=== PATIENT | female | born 1980 | race Caucasian/White ===

== ENCOUNTER 2017-07-25 03:05 | Emergency (ER) | payer MEDICARE ==
[2017-07-25] MEDS ORDERED: DEXAMETHASONE SOD PHOSPHATE 10MG/ML 1ML VIAL ONE (03:32)
[2017-07-25] MEDS ORDERED: IPRATROPIUM/ALBUTEROL SULFATE 3 ML SOLUTION IH ONE (03:37)
== END 2017-07-25 04:08 | disposition home or self-care (01) ==
LOC: EDH 03:05
DX: J20.9 Acute bronchitis, unspecified (principal); Z88.1 Allergy status to other antibiotic agents; Z72.0 Tobacco use
CPT/HCPCS: 94640; 96372; 99283; J1100

== ENCOUNTER 2020-04-06 09:38 | Emergency (ER) | payer MEDICARE ==
[2020-04-06] MEDS ORDERED: IBUPROFEN 600 MG TABLET ONE (10:52)
== END 2020-04-06 13:05 | disposition home or self-care (01) ==
LOC: EDH 09:38
DX: S96.212A Strain of intrinsic muscle and tendon at ankle and foot level, left foot, initial encounter (principal); F31.9 Bipolar disorder, unspecified; E78.00 Pure hypercholesterolemia, unspecified; I10 Essential (primary) hypertension; Z90.49 Acquired absence of other specified parts of digestive tract; Z72.0 Tobacco use; Z88.1 Allergy status to other antibiotic agents; X58.XXXA Exposure to other specified factors, initial encounter; Y93.89 Activity, other specified; Y92.89 Other specified places as the place of occurrence of the external cause; Y99.8 Other external cause status
CPT/HCPCS: 73630

== ENCOUNTER → 2020-06-25 | Outpatient (CLI) | payer MEDICARE | END | disposition home or self-care (01) | LOC: DTH 13:18 | PROVIDERS: ATTEND Surgery | DX: E66.01 Morbid (severe) obesity due to excess calories (principal); I10 Essential (primary) hypertension; M19.91 Primary osteoarthritis, unspecified site; K21.9 Gastro-esophageal reflux disease without esophagitis; E78.5 Hyperlipidemia, unspecified; E11.9 Type 2 diabetes mellitus without complications; E78.00 Pure hypercholesterolemia, unspecified | CPT/HCPCS: 97802 ==

== ENCOUNTER → 2020-07-24 | Outpatient (CLI) | payer OTHER | END | disposition home or self-care (01) | LOC: DTH 11:01 | PROVIDERS: ATTEND Surgery | DX: E66.01 Morbid (severe) obesity due to excess calories (principal); I10 Essential (primary) hypertension; M19.91 Primary osteoarthritis, unspecified site; K21.9 Gastro-esophageal reflux disease without esophagitis; E11.9 Type 2 diabetes mellitus without complications; E78.00 Pure hypercholesterolemia, unspecified | CPT/HCPCS: 97803 ==

== ENCOUNTER → 2020-08-19 | Outpatient (CLI) | payer OTHER | END | disposition home or self-care (01) | LOC: DTH 10:45 | PROVIDERS: ATTEND Surgery | DX: E66.01 Morbid (severe) obesity due to excess calories (principal); I10 Essential (primary) hypertension; M19.91 Primary osteoarthritis, unspecified site; K21.9 Gastro-esophageal reflux disease without esophagitis; E11.9 Type 2 diabetes mellitus without complications; E78.00 Pure hypercholesterolemia, unspecified | CPT/HCPCS: 97803 ==

== ENCOUNTER 2020-08-25 06:57 | Day surgery (SDC) | payer MEDICARE ==
[~2020-08-25] VITALS: Ht 170.2 cm; Wt 153.3 kg
[2020-08-25] VITALS (8 sets, daily range): BP systolic 103–140; BP diastolic 66–94
[2020-08-25] MEDS ORDERED: 0.9%NACL 1000ML 1,000 ML IV ONE ×2 (07:17→07:25)
[2020-08-25] MEDS ORDERED: OXCA300T28 PO (07:58)
[2020-08-25] MEDS ORDERED: METF-444 PO (07:58)
[2020-08-25] MEDS ORDERED: QUET50TA22 PO (07:58)
[2020-08-25] MEDS ORDERED: LISI20TA24 PO (07:58)
[2020-08-25] MEDS ORDERED: ICOS1CAP PO (07:58)
[2020-08-25] MEDS ORDERED: PROPOFOL 10 MG/ML 20ML VIAL IV ONE (08:38)
== END 2020-08-25 09:40 | disposition home or self-care (01) ==
LOC: DAH 06:57
PROVIDERS: ATTEND Surgery
DX: K21.9 Gastro-esophageal reflux disease without esophagitis (principal); K31.84 Gastroparesis; Z20.822 Contact with and (suspected) exposure to COVID-19
CPT/HCPCS: 36415; 43235; 82948; 84703; 87635; 93005; A4215 ×2; A4221; A4222; A4223; A4606; A4620; A4663; C9803; J2704; J7030 ×2

== ENCOUNTER → 2020-09-25 | Outpatient (CLI) | payer MEDICARE ==
[~2020-09-25] MED LIST: ICOS1CAP PO; LISI20TA24 PO; METF-444 PO; OXCA300T28 PO; QUET50TA24 PO
== END | disposition home or self-care (01) ==
LOC: RAH 12:29
PROVIDERS: ATTEND Family Medicine
DX: Z01.818 Encounter for other preprocedural examination (principal)
CPT/HCPCS: 71046

== ENCOUNTER 2020-10-14 09:00 | Inpatient (IN) | payer MEDICARE ==
[~2020-10-14] VITALS: Ht 170.2 cm; Wt 152.0 kg
[2020-10-17 12:49] LABS: BASOPHILS % (AUTO) 0.2 % (0.0-5.0); EOSINOPHILS % (AUTO) 1.1 % (0.0-8.0); HEMATOCRIT 42.2 % (36-48); LYMPHOCYTES % (AUTO) 23.7 % (21.0-51.0); MEAN CORPUSCULAR HEMOGLOBIN 29.4 pg (27.0-33.0); MEAN CORPUSCULAR HGB CONC 32.7 g/dL (32.0-36.0); MONOCYTES % (AUTO) 4.9 % (3.0-13.0); NEUTROPHILS % (AUTO) 69.7 % (40.0-77.0); PLATELET COUNT (AUTO) 416 K/uL (130-400); RED BLOOD CELL COUNT(AUTO) 4.69 MIL/uL (4.00-5.50); RED CELL DISTRIBUTION WIDTH 13.2 % (11.0-15.5); WHITE BLOOD COUNT (AUTO) 12.2 K/uL (4.8-10.8)
[2020-10-17 13:00] LABS: CREATININE 0.6 mg/dL (0.5-1.5); POTASSIUM 3.6 mmol/L (3.5-5.1)
[2020-10-17 14:00] LABS: INR 1.1 (0.85-1.15); PROTHROMBIN TIME 11.9 SEC (9.6-11.6)
[2020-10-17] MEDS ORDERED: 0.9%NACL 1000ML 1,000 ML IV SCH (14:00)
[2020-10-17] MEDS ORDERED: LORA-192 PO (15:03)
[2020-10-17] MEDS ORDERED: VITAMIN D PO (15:03)
[2020-10-20] VITALS (25 sets, daily range): BP systolic 126–153; BP diastolic 64–95
[2020-10-20] MEDS: CEFAZOLIN SODIUM 1 GM VIAL IVP SCH ×6 (06:00→19:42)
[2020-10-20] MEDS ORDERED: LIDOCAINE PF 100MG/5ML (2%) SYRINGE 5ML ONE (07:39)
[2020-10-20] MEDS ORDERED: PROPOFOL 10 MG/ML 20ML VIAL IV ONE ×2 (07:39→09:40)
[2020-10-20] MEDS ORDERED: FENTANYL CITRATE PF 50 MCG/1 ML 5ML AMP IV ONE (07:39)
[2020-10-20] MEDS ORDERED: ONDANSETRON 4MG INJ ONE ×2 (07:39→07:52)
[2020-10-20] MEDS ORDERED: ROCURONIUM 10MG/1ML SYR 10 MG/ML ML ONE ×2 (07:39→09:19)
[2020-10-20] MEDS ORDERED: MIDAZOLAM HCL 1 MG/ML 2ML VIAL ONE (07:40)
[2020-10-20] MEDS ORDERED: MAGNESIUM SULFATE 1 GM/2 ML VIAL ONE (07:49)
[2020-10-20] MEDS ORDERED: KETAMINE 50MG/ML SYRINGE 50 MG/ML DISP.SYRIN IV ONE ×2 (07:49→07:51)
[2020-10-20] MEDS ORDERED: DEXMEDETOMIDINE HCL 200 MCG/2 ML VIAL IV ONE (07:50)
[2020-10-20] MEDS ORDERED: LACTATED RINGERS 1000ML 1,000 ML IV ONE (07:58)
[2020-10-20] MEDS ORDERED: SCOPOLAMINE HYDROBROMIDE 1 EACH ADH..PATCH TD ONE (08:05)
[2020-10-20] MEDS ORDERED: SCOPOLAMINE HYDROBROMIDE 1 EACH ADH..PATCH TD SCH (08:30)
[2020-10-20] MEDS ORDERED: KETOROLAC 30MG VIAL (30MG/ML) ONE (09:21)
[2020-10-20] MEDS ORDERED: BUPIVACAINE/PF 0.5% 30ML VIAL ONE (10:08)
[2020-10-20] MEDS ORDERED: FENTANYL CITRATE PF 50 MCG/1 ML 2ML VIAL ONE (10:27)
[2020-10-20] MEDS ORDERED: ONDANSETRON 4MG INJ IVP PRN (10:30)
[2020-10-20] MEDS ORDERED: KETOROLAC 30MG VIAL (30MG/ML) IM PRN (10:30)
[2020-10-20] MEDS ORDERED: MORPHINE 5 MG/ML VIAL (5MG OR GREATER DOSE) IVP PRN (10:30)
[2020-10-20] MEDS: LACTATED RINGERS 1000ML 1,000 ML IV SCH ×2 (10:30→18:30)
[2020-10-20] MEDS ORDERED: MEPERIDINE-PF 25 MG/ML SYG ONE ×2 (10:44→10:52)
[2020-10-20] MEDS ORDERED: CEFAZOLIN SODIUM 1 GM VIAL ONE (19:50)
[2020-10-20] MEDS: FAMOTIDINE 20MG VIAL IV SCH (21:02)
[2020-10-20] MEDS: KETOROLAC 30MG VIAL (30MG/ML) IM SCH (21:04)
[2020-10-20] MEDS: ENOXAPARIN SODIUM 30 MG/0.3 ML SQ SCH (21:05)
[2020-10-21] MEDS: KETOROLAC 30MG VIAL (30MG/ML) IM SCH ×4 (02:28→20:47)
[2020-10-21] MEDS: LACTATED RINGERS 1000ML 1,000 ML IV SCH ×3 (02:30→18:30)
[2020-10-21 03:43] VITALS: BP 123/62
[2020-10-21 05:29] LABS: BASOPHILS % (AUTO) 0.2 % (0.0-5.0); EOSINOPHILS % (AUTO) 0.1 % (0.0-8.0); HEMATOCRIT 35.6 % (36-48); LYMPHOCYTES % (AUTO) 23.3 % (21.0-51.0); MEAN CORPUSCULAR HGB CONC 32.9 g/dL (32.0-36.0); MEAN CORPUSCULAR VOLUME 91.3 fL (79-99); MONOCYTES % (AUTO) 6.7 % (3.0-13.0); NEUTROPHILS % (AUTO) 69.3 % (40.0-77.0); PLATELET COUNT (AUTO) 387 K/uL (130-400); RED CELL DISTRIBUTION WIDTH 13.3 % (11.0-15.5); WHITE BLOOD COUNT (AUTO) 16.8 K/uL (4.8-10.8)
[2020-10-21 05:55] LABS: CREATININE 0.6 mg/dL (0.5-1.5); POTASSIUM 3.6 mmol/L (3.5-5.1)
[2020-10-21 07:25] VITALS: BP 123/71
[2020-10-21] MEDS: FAMOTIDINE 20MG VIAL IV SCH ×2 (08:58→20:47)
[2020-10-21] MEDS: ENOXAPARIN SODIUM 30 MG/0.3 ML SQ SCH ×2 (08:58→20:50)
[2020-10-21 12:01] VITALS: BP 112/68
[2020-10-21 15:30] VITALS: BP 144/87
[2020-10-21 20:00] VITALS: BP 121/71
[2020-10-22] VITALS: BP 116/67
[2020-10-22 04:00] VITALS: BP 108/56
[2020-10-22] MEDS: KETOROLAC 30MG VIAL (30MG/ML) IM SCH ×2 (06:10→12:56)
[2020-10-22 08:00] VITALS: BP 117/59
[2020-10-22] MEDS: FAMOTIDINE 20MG VIAL IV SCH (09:14)
[2020-10-22] MEDS: ENOXAPARIN SODIUM 30 MG/0.3 ML SQ SCH (09:14)
[2020-10-22] MEDS: LACTATED RINGERS 1000ML 1,000 ML IV SCH (10:30)
[2020-10-22 12:00] VITALS: BP 120/60
[2020-10-22 16:00] VITALS: BP 113/59
== END 2020-10-22 19:50 | disposition home or self-care (01) | DRG 621 ==
LOC: EDSTATUS 10-17 10:00 → DAHIP 10-20 07:24 → 3BH 10-20 11:41
PROVIDERS: ADMIT Surgery; ATTEND Surgery
PROC: 0DJ08ZZ Inspection of Upper Intestinal Tract, Via Natural or Artificial Opening Endoscopic (ICD-10-PCS; 2020-10-20)
PROC: 0D164ZA Bypass Stomach to Jejunum, Percutaneous Endoscopic Approach (ICD-10-PCS; principal; 2020-10-20 08:00)
DX: E66.01 Morbid (severe) obesity due to excess calories (principal); Z20.822 Contact with and (suspected) exposure to COVID-19; Z68.43 Body mass index [BMI] 50.0-59.9, adult; E11.9 Type 2 diabetes mellitus without complications; E78.00 Pure hypercholesterolemia, unspecified; I10 Essential (primary) hypertension; I25.10 Atherosclerotic heart disease of native coronary artery without angina pectoris; F41.9 Anxiety disorder, unspecified; Z88.8 Allergy status to other drugs, medicaments and biological substances; Z91.041 Radiographic dye allergy status; Z90.49 Acquired absence of other specified parts of digestive tract
CPT/HCPCS: 36415; 43235; 80048; 82948; 84703; 85025; 85610; 86850; 86900; 86901; 87635; 93005; 97039; G0378; J0690; J1650; J1885; J2001; J2175; J2250; J2270; J2405; J2704; J3010; J3475; J3490; J7030; J7120

== ENCOUNTER 2020-10-23 19:24 | Observation (INO) | payer MEDICARE ==
[~2020-10-23 19:24] MED LIST changes: +LORA-192 PO; +VITAMIN D PO
[2020-10-23 19:50] VITALS: BP 135/58
[2020-10-23 20:13] LABS: BASOPHILS % (AUTO) 0.3 % (0.0-5.0); EOSINOPHILS % (AUTO) 2.3 % (0.0-8.0); HEMATOCRIT 33.9 % (36-48); MEAN CORPUSCULAR HEMOGLOBIN 29.7 pg (27.0-33.0); MEAN CORPUSCULAR HGB CONC 33.9 g/dL (32.0-36.0); MEAN CORPUSCULAR VOLUME 87.6 fL (79-99); MONOCYTES % (AUTO) 4.3 % (3.0-13.0); NEUTROPHILS % (AUTO) 62.7 % (40.0-77.0); PLATELET COUNT (AUTO) 385 K/uL (130-400); RED BLOOD CELL COUNT(AUTO) 3.87 MIL/uL (4.00-5.50)
[2020-10-23 20:22] LABS: CREATININE 0.7 mg/dL (0.5-1.5); POTASSIUM 3.1 mmol/L (3.5-5.1)
[2020-10-23 20:26] LABS: ALBUMIN 3.1 g/dL (3.5-5.0); BILIRUBIN,TOTAL 0.5 mg/dL (0.2-1.0); CRP QUANTITATIVE 31.2 mg/L (0.00-9.0)
[2020-10-23] MEDS ORDERED: IOHEXOL 350 MG/ML 100ML INFUS..BTL IV ONE (20:56)
[2020-10-23] MEDS ORDERED: IOHEXOL-350 75 ML VIAL IV ONE (20:56)
[2020-10-23] MEDS ORDERED: POTASSIUM CHLORIDE 10% ELIXIR 20 MEQ/15 ML UDCUP PO ONE (21:00)
[2020-10-23] MEDS ORDERED: DEXAMETHASONE SOD PHOSPHATE 4 MG/ML 1ML VIAL IVP SCH (21:00)
[2020-10-23] MEDS ORDERED: LACTATED RINGERS 1000ML 1,500 ML IV ONE (21:00)
[2020-10-23] MEDS ORDERED: DiphenhydrAMINE HCL 50 MG/ML VIAL IV ONE (21:00)
[2020-10-23 22:14] VITALS: BP 120/69
[2020-10-23 23:11] VITALS: BP 106/59
[2020-10-23 23:46] VITALS: BP 116/65
[2020-10-23 23:59] VITALS: BP 129/84
[2020-10-24 00:11] VITALS: BP 129/84
[2020-10-24] MEDS ORDERED: LACTATED RINGERS 1000ML 1,000 ML IV ONE (00:30)
[2020-10-24 00:52] VITALS: BP 128/84
[2020-10-24 04:31] VITALS: BP 122/77
[2020-10-24 05:52] VITALS: BP 138/82
[2020-10-24 07:55] VITALS: BP 129/65
[2020-10-24] MEDS ORDERED: APAP/CODEINE 120/12MG 5ML ONE (11:56)
[2020-10-24] MEDS ORDERED: APAP/CODEINE 120/12MG 5ML PO ONE (12:00)
== END 2020-10-24 12:11 | disposition home or self-care (01) ==
LOC: EDH 19:28 → EDHIP 10-24 00:25
PROVIDERS: ADMIT Surgery; ATTEND Surgery
DX: R09.02 Hypoxemia (principal); Z20.822 Contact with and (suspected) exposure to COVID-19; E11.9 Type 2 diabetes mellitus without complications; E66.01 Morbid (severe) obesity due to excess calories; E78.00 Pure hypercholesterolemia, unspecified; F31.9 Bipolar disorder, unspecified; F41.9 Anxiety disorder, unspecified; I10 Essential (primary) hypertension; I25.10 Atherosclerotic heart disease of native coronary artery without angina pectoris; K57.30 Diverticulosis of large intestine without perforation or abscess without bleeding; Z98.84 Bariatric surgery status; Z79.84 Long term (current) use of oral hypoglycemic drugs; Z90.49 Acquired absence of other specified parts of digestive tract; Z79.899 Other long term (current) drug therapy; Z98.890 Other specified postprocedural states; Z68.41 Body mass index [BMI] 40.0-44.9, adult
CPT/HCPCS: 36415 ×2; 71045; 71275; 74177; 80053; 82948; 83735; 84132; 85025; 86140; 86850; 86900; 86901; 87635; 93005; 96361; 96374; 96375; 99285; C9803; G0378 ×12; J1100; J1200; J7120; Q9967 ×2

== ENCOUNTER 2020-11-12 12:37 | Emergency (ER) | payer MEDICARE ==
[~2020-11-12] VITALS: Ht 170.2 cm; Wt 141.5 kg
[2020-11-12] MEDS ORDERED: BISACODYL 10 MG SUPP.RECT RC SCH (15:08)
[2020-11-12] MEDS ORDERED: BISACODYL 10 MG SUPP.RECT RC ONE (15:08)
[2020-11-12] MEDS ORDERED: FLEETOIL PR (16:06)
[2020-11-12] MEDS ORDERED: BISA10SU61 RC (16:06)
[2020-11-12 16:13] VITALS: BP 126/90
== END 2020-11-12 16:26 | disposition home or self-care (01) ==
LOC: EDH 12:37
DX: K59.00 Constipation, unspecified (principal); E11.9 Type 2 diabetes mellitus without complications; E78.00 Pure hypercholesterolemia, unspecified; I10 Essential (primary) hypertension; Z90.49 Acquired absence of other specified parts of digestive tract; Z79.899 Other long term (current) drug therapy
CPT/HCPCS: 74018

== ENCOUNTER 2020-12-06 22:18 | Emergency (ER) | payer MEDICARE ==
[~2020-12-06] VITALS: Ht 170.2 cm; Wt 124.7 kg
[~2020-12-06 22:18] MED LIST changes: +BISA10SU61 RC; +FLEETOIL PR
[2020-12-06 22:51] LABS: BASOPHILS % (AUTO) 0.3 % (0.0-5.0); EOSINOPHILS % (AUTO) 2.6 % (0.0-8.0); HEMATOCRIT 45.3 % (36-48); LYMPHOCYTES % (AUTO) 33.3 % (21.0-51.0); MEAN CORPUSCULAR HEMOGLOBIN 29.5 pg (27.0-33.0); MEAN CORPUSCULAR HGB CONC 32.2 g/dL (32.0-36.0); MEAN CORPUSCULAR VOLUME 91.5 fL (79-99); MONOCYTES % (AUTO) 6.1 % (3.0-13.0); NEUTROPHILS % (AUTO) 57.3 % (40.0-77.0); PLATELET COUNT (AUTO) 327 K/uL (130-400); RED BLOOD CELL COUNT(AUTO) 4.95 MIL/uL (4.00-5.50); RED CELL DISTRIBUTION WIDTH 13.4 % (11.0-15.5); WHITE BLOOD COUNT (AUTO) 11.6 K/uL (4.8-10.8)
[2020-12-06 22:55] LABS: APPEARANCE,URINE Cloudy (CLEAR); BILIRUBIN,URINE Negative (NEGATIVE); COLOR,URINE Dark Yellow (YELLOW); GLUCOSE, URINE (UA) Negative (NEGATIVE); KETONES,URINE Trace mg/dL (NEGATIVE); LEUKOCYTE ESTERASE ,URINE Small (NEGATIVE); NITRATE,URINE Negative (NEGATIVE); OCCULT BLOOD,URINE Negative (NEGATIVE); PH,URINE 5.5 (5.0-8.0); PROTEIN,URINE Trace mg/dL (NEGATIVE)
[2020-12-06 23:00] LABS: CREATININE 0.7 mg/dL (0.5-1.5)
[2020-12-06] MEDS ORDERED: HYDROCODONE/ACETAMINOPHEN 10/325 MG TAB PO ONE (23:00)
[2020-12-06 23:02] LABS: HCG,QUAL RESULT NEGATIVE (NEGATIVE)
[2020-12-06 23:04] LABS: ALBUMIN 3.8 g/dL (3.5-5.0); BILIRUBIN,TOTAL 0.5 mg/dL (0.2-1.0); TOTAL PROTEIN, SERUM 8.1 g/dL (6.0-8.3)
[2020-12-06 23:15] LABS: BACTERIA,URINE Rare /HPF (None Seen); RBC,URINE None Seen /HPF (0-1); SQUAMOUS EPITHELIAL CELL,UR Many /HPF (0-2); WBC,URINE 0-1 /HPF (0-1)
[2020-12-07 01:27] VITALS: BP 121/73
== END 2020-12-07 01:50 | disposition home or self-care (01) ==
LOC: EDH 22:18
DX: S30.1XXA Contusion of abdominal wall, initial encounter (principal); I10 Essential (primary) hypertension; E78.00 Pure hypercholesterolemia, unspecified; E66.9 Obesity, unspecified; Z88.1 Allergy status to other antibiotic agents; Z88.8 Allergy status to other drugs, medicaments and biological substances; Z79.84 Long term (current) use of oral hypoglycemic drugs; Z79.899 Other long term (current) drug therapy; Z90.49 Acquired absence of other specified parts of digestive tract; Z98.84 Bariatric surgery status; Z68.41 Body mass index [BMI] 40.0-44.9, adult; W01.0XXA Fall on same level from slipping, tripping and stumbling without subsequent striking against object, initial encounter; Y93.89 Activity, other specified; Y92.89 Other specified places as the place of occurrence of the external cause; Y99.8 Other external cause status
CPT/HCPCS: 36415; 74176; 80053; 81001; 81025; 83690; 85025

== ENCOUNTER 2020-12-07 20:59 | Emergency (ER) | payer MEDICARE ==
[~2020-12-07] VITALS: Ht 170.2 cm; Wt 139.7 kg
[2020-12-07] MEDS ORDERED: ASPIRIN 325MG TAB PO ONE (21:30)
[2020-12-07 22:14] LABS: BASOPHILS % (AUTO) 0.3 % (0.0-5.0); HEMATOCRIT 41.8 % (36-48); LYMPHOCYTES % (AUTO) 31.7 % (21.0-51.0); MEAN CORPUSCULAR HEMOGLOBIN 29.8 pg (27.0-33.0); MEAN CORPUSCULAR HGB CONC 32.5 g/dL (32.0-36.0); MEAN CORPUSCULAR VOLUME 91.7 fL (79-99); MONOCYTES % (AUTO) 5.4 % (3.0-13.0); NEUTROPHILS % (AUTO) 60.4 % (40.0-77.0); PLATELET COUNT (AUTO) 283 K/uL (130-400); RED BLOOD CELL COUNT(AUTO) 4.56 MIL/uL (4.00-5.50); RED CELL DISTRIBUTION WIDTH 13.4 % (11.0-15.5); WHITE BLOOD COUNT (AUTO) 10.1 K/uL (4.8-10.8)
[2020-12-07 22:29] LABS: CREATININE 0.7 mg/dL (0.5-1.5); POTASSIUM 3.2 mmol/L (3.5-5.1)
[2020-12-07 22:35] LABS: ALBUMIN 3.8 g/dL (3.5-5.0); BILIRUBIN,TOTAL 0.5 mg/dL (0.2-1.0); TOTAL PROTEIN, SERUM 7.7 g/dL (6.0-8.3)
[2020-12-07 23:10] LABS: BILIRUBIN,URINE Small (NEGATIVE); COLOR,URINE Dark Yellow (YELLOW); GLUCOSE, URINE (UA) Negative (NEGATIVE); KETONES,URINE 40 mg/dL (NEGATIVE); LEUKOCYTE ESTERASE ,URINE Small (NEGATIVE); NITRATE,URINE Positive (NEGATIVE); OCCULT BLOOD,URINE Negative (NEGATIVE); PH,URINE 5.5 (5.0-8.0); PROTEIN,URINE Trace mg/dL (NEGATIVE)
[2020-12-07 23:11] LABS: APPEARANCE,URINE SLIGHTLY CLOUDY (CLEAR)
[2020-12-07 23:18] LABS: AMPHET/METH SCREEN,URINE NEGATIVE (NEGATIVE); BARBITURATE SCREEN, URINE NEGATIVE (NEGATIVE); BENZODIAZEPINES SCREEN,URINE NEGATIVE (NEGATIVE); CANNABINOID SCREEN,URINE NEGATIVE (NEGATIVE); COCAINE SCREEN,URINE NEGATIVE (NEGATIVE); OPIATE SCREEN,URINE POSITIVE (NEGATIVE); PHENCYCLIDINE SCREEN,URINE NEGATIVE (NEGATIVE)
[2020-12-07 23:21] LABS: RBC,URINE 0-1 /HPF (0-1)
[2020-12-07 23:22] LABS: BACTERIA,URINE Few /HPF (None Seen); MUCUS,URINE Moderate LPF (None Seen)
[2020-12-07 23:45] VITALS: BP 142/70
== END 2020-12-08 | disposition home or self-care (01) ==
LOC: EDH 20:59
DX: S30.1XXA Contusion of abdominal wall, initial encounter (principal); F41.9 Anxiety disorder, unspecified; R07.89 Other chest pain; E78.00 Pure hypercholesterolemia, unspecified; I10 Essential (primary) hypertension; Z90.49 Acquired absence of other specified parts of digestive tract; Z98.890 Other specified postprocedural states; Z88.1 Allergy status to other antibiotic agents; Z88.8 Allergy status to other drugs, medicaments and biological substances; Z79.899 Other long term (current) drug therapy; Z79.84 Long term (current) use of oral hypoglycemic drugs; X58.XXXA Exposure to other specified factors, initial encounter; Y93.89 Activity, other specified; Y92.89 Other specified places as the place of occurrence of the external cause; Y99.8 Other external cause status
CPT/HCPCS: 36415; 71045; 80053; 80305; 81001; 82550; 84484; 85025; 87077; 87088; 87186; 93005

== ENCOUNTER 2021-01-23 15:52 | Emergency (ER) | payer MEDICARE ==
[~2021-01-23] VITALS: Ht 170.2 cm; Wt 126.1 kg
[2021-01-23] MEDS ORDERED: 0.9%NACL 1000ML 1,000 ML IV ONE (16:30)
[2021-01-23] MEDS ORDERED: KETOROLAC 30MG VIAL (30MG/ML) IV ONE (16:30)
[2021-01-23 17:10] LABS: BASOPHILS % (AUTO) 0.2 % (0.0-5.0); EOSINOPHILS % (AUTO) 1.1 % (0.0-8.0); LYMPHOCYTES % (AUTO) 22.6 % (21.0-51.0); MEAN CORPUSCULAR HEMOGLOBIN 29.8 pg (27.0-33.0); MEAN CORPUSCULAR HGB CONC 32.4 g/dL (32.0-36.0); MEAN CORPUSCULAR VOLUME 91.9 fL (79-99); MONOCYTES % (AUTO) 6.1 % (3.0-13.0); NEUTROPHILS % (AUTO) 69.7 % (40.0-77.0); PLATELET COUNT (AUTO) 305 K/uL (130-400); RED BLOOD CELL COUNT(AUTO) 4.57 MIL/uL (4.00-5.50); RED CELL DISTRIBUTION WIDTH 13.6 % (11.0-15.5); WHITE BLOOD COUNT (AUTO) 9.9 K/uL (4.8-10.8)
[2021-01-23 17:22] LABS: CREATININE 0.7 mg/dL (0.5-1.5); POTASSIUM 4.8 mmol/L (3.5-5.1)
[2021-01-23 17:26] LABS: ALBUMIN 3.7 g/dL (3.5-5.0); BILIRUBIN,TOTAL 0.4 mg/dL (0.2-1.0); TOTAL PROTEIN, SERUM 7.3 g/dL (6.0-8.3)
[2021-01-23 18:45] LABS: APPEARANCE,URINE Clear (CLEAR); BILIRUBIN,URINE Negative (NEGATIVE); COLOR,URINE Yellow (YELLOW); GLUCOSE, URINE (UA) Negative (NEGATIVE); KETONES,URINE Negative (NEGATIVE); LEUKOCYTE ESTERASE ,URINE Small (NEGATIVE); NITRATE,URINE Negative (NEGATIVE); OCCULT BLOOD,URINE Negative (NEGATIVE); PH,URINE 7.5 (5.0-8.0); PROTEIN,URINE Negative (NEGATIVE)
[2021-01-23 18:49] LABS: HCG,QUAL RESULT NEGATIVE (NEGATIVE)
[2021-01-23 18:51] LABS: BACTERIA,URINE Few /HPF (None Seen); RBC,URINE None Seen /HPF (0-1)
[2021-01-23] MEDS ORDERED: CEFTRIAXONE 1G VIAL IVP ONE (19:00)
[2021-01-23] MEDS ORDERED: CEPH500B PO (19:00)
[2021-01-23] MEDS ORDERED: ACET-2247 PO (19:00)
[2021-01-23] MEDS ORDERED: DIPHENHYDRAMINE HCL 25 MG CAPSULE ONE (19:46)
[2021-01-23] MEDS ORDERED: DIPHENHYDRAMINE HCL 25 MG CAPSULE PO ONE (20:00)
[2021-01-23 20:02] VITALS: BP 119/73
== END 2021-01-23 20:08 | disposition home or self-care (01) ==
LOC: EDH 15:52
DX: S50.02XA Contusion of left elbow, initial encounter (principal); S90.512A Abrasion, left ankle, initial encounter; S50.312A Abrasion of left elbow, initial encounter; N39.0 Urinary tract infection, site not specified; E78.00 Pure hypercholesterolemia, unspecified; I10 Essential (primary) hypertension; F31.9 Bipolar disorder, unspecified; E66.9 Obesity, unspecified; Z88.1 Allergy status to other antibiotic agents; Z88.8 Allergy status to other drugs, medicaments and biological substances; Z79.899 Other long term (current) drug therapy; Z79.84 Long term (current) use of oral hypoglycemic drugs; Z79.1 Long term (current) use of non-steroidal anti-inflammatories (NSAID); Z90.49 Acquired absence of other specified parts of digestive tract; Z68.41 Body mass index [BMI] 40.0-44.9, adult; W18.39XA Other fall on same level, initial encounter; Y93.H2 Activity, gardening and landscaping; Y92.89 Other specified places as the place of occurrence of the external cause; Y99.8 Other external cause status
CPT/HCPCS: 36415; 71045; 73070; 73610; 80053; 81001; 81025; 84484; 85025; 93005; 96361; 96374; 96375; 99285; J0696; J1885; J7030; Q0163

== ENCOUNTER 2021-06-12 19:21 | Emergency (ER) | payer MEDICARE ==
[~2021-06-12] VITALS: Ht 170.2 cm; Wt 112.0 kg
[~2021-06-12 19:21] MED LIST changes: +ACET-2247 PO; +CEPH500B PO
[2021-06-12 19:22] VITALS: BP 154/97
[2021-06-12] MEDS: KETOROLAC 30MG VIAL (30MG/ML) IVP ONE ×2 (20:16→20:46)
[2021-06-12 20:19] LABS: APPEARANCE,URINE CLOUDY (CLEAR); BILIRUBIN,URINE SMALL (NEGATIVE); COLOR,URINE BROWN (YELLOW); GLUCOSE, URINE (UA) NEGATIVE (NEGATIVE); KETONES,URINE 5 mg/dL (NEGATIVE); LEUKOCYTE ESTERASE ,URINE SMALL (NEGATIVE); NITRATE,URINE POSITIVE (NEGATIVE); OCCULT BLOOD,URINE LARGE (NEGATIVE); PH,URINE 6.5 (5.0-8.0); PROTEIN,URINE 30 mg/dL (NEGATIVE)
[2021-06-12 20:23] LABS: HCG,QUAL RESULT NEGATIVE (NEGATIVE)
[2021-06-12 20:27] LABS: BASOPHILS % (AUTO) 0.3 % (0.0-5.0); EOSINOPHILS % (AUTO) 1.9 % (0.0-8.0); HEMATOCRIT 43.4 % (36-48); LYMPHOCYTES % (AUTO) 31.3 % (21.0-51.0); MEAN CORPUSCULAR HEMOGLOBIN 30.6 pg (27.0-33.0); MEAN CORPUSCULAR HGB CONC 32.9 g/dL (32.0-36.0); MEAN CORPUSCULAR VOLUME 92.7 fL (79-99); MONOCYTES % (AUTO) 5.7 % (3.0-13.0); NEUTROPHILS % (AUTO) 60.4 % (40.0-77.0); PLATELET COUNT (AUTO) 312 K/uL (130-400); RED BLOOD CELL COUNT(AUTO) 4.68 MIL/uL (4.00-5.50); RED CELL DISTRIBUTION WIDTH 13.2 % (11.0-15.5); WHITE BLOOD COUNT (AUTO) 10.2 K/uL (4.8-10.8)
[2021-06-12 20:32] LABS: BACTERIA,URINE Moderate /HPF (None Seen); MUCUS,URINE Few LPF (None Seen); RBC,URINE 51-100 /HPF (0-1); SQUAMOUS EPITHELIAL CELL,UR Few /HPF (0-2)
[2021-06-12 20:48] LABS: CREATININE 0.6 mg/dL (0.5-1.5); POTASSIUM 4.2 mmol/L (3.5-5.1)
[2021-06-12 20:53] LABS: ALBUMIN 3.3 g/dL (3.5-5.0); BILIRUBIN,TOTAL 0.3 mg/dL (0.2-1.0)
[2021-06-12] MEDS ORDERED: CEPH500B PO (21:20)
[2021-06-12] MEDS ORDERED: CEPHALEXIN 500 MG CAPSULE PO ONE (21:30)
== END 2021-06-12 21:37 | disposition home or self-care (01) ==
LOC: EDH 19:21
DX: N39.0 Urinary tract infection, site not specified (principal); I10 Essential (primary) hypertension; E11.9 Type 2 diabetes mellitus without complications; Z90.89 Acquired absence of other organs; Z88.1 Allergy status to other antibiotic agents; Z88.8 Allergy status to other drugs, medicaments and biological substances; Z91.013 Allergy to seafood; Z79.899 Other long term (current) drug therapy
CPT/HCPCS: 36415; 74176; 80053; 81001; 81025; 85025; 87077; 87088; 87186; 99284; J1885

== ENCOUNTER 2021-07-07 20:50 | Emergency (ER) | payer MEDICARE ==
[~2021-07-07] VITALS: Ht 170.2 cm; Wt 108.4 kg
[2021-07-07 20:53] VITALS: BP 160/68
[2021-07-07] MEDS ORDERED: 0.9%NACL 1000ML 1,000 ML IV SCH (21:30)
[2021-07-07] MEDS ORDERED: ACETAMINOPHEN 500 MG TABLET PO ONE (21:30)
[2021-07-07] MEDS ORDERED: IBUPROFEN 800 MG TAB PO ONE (21:30)
[2021-07-07 21:33] LABS: APPEARANCE,URINE Clear (CLEAR); BILIRUBIN,URINE Negative (NEGATIVE); COLOR,URINE Yellow (YELLOW); GLUCOSE, URINE (UA) Negative (NEGATIVE); KETONES,URINE Trace mg/dL (NEGATIVE); LEUKOCYTE ESTERASE ,URINE Trace (NEGATIVE); NITRATE,URINE Negative (NEGATIVE); OCCULT BLOOD,URINE Negative (NEGATIVE); PH,URINE 6.5 (5.0-8.0); PROTEIN,URINE Negative (NEGATIVE)
[2021-07-07 21:34] LABS: HCG,QUAL RESULT NEGATIVE (NEGATIVE)
[2021-07-07 21:38] LABS: BASOPHILS % (AUTO) 0.4 % (0.0-5.0); EOSINOPHILS % (AUTO) 0.9 % (0.0-8.0); HEMATOCRIT 44.1 % (36-48); LYMPHOCYTES % (AUTO) 7.3 % (21.0-51.0); MEAN CORPUSCULAR HGB CONC 32.4 g/dL (32.0-36.0); MEAN CORPUSCULAR VOLUME 92.6 fL (79-99); MONOCYTES % (AUTO) 10.2 % (3.0-13.0); NEUTROPHILS % (AUTO) 80.8 % (40.0-77.0); PLATELET COUNT (AUTO) 266 K/uL (130-400); RED BLOOD CELL COUNT(AUTO) 4.76 MIL/uL (4.00-5.50); RED CELL DISTRIBUTION WIDTH 13.2 % (11.0-15.5); WHITE BLOOD COUNT (AUTO) 5.4 K/uL (4.8-10.8)
[2021-07-07 21:41] LABS: BACTERIA,URINE Few /HPF (None Seen); RBC,URINE None Seen /HPF (0-1); SQUAMOUS EPITHELIAL CELL,UR 0-2 /HPF (0-2); WBC,URINE 0-1 /HPF (0-1)
[2021-07-07 21:48] LABS: CREATININE 0.6 mg/dL (0.5-1.5); POTASSIUM 3.5 mmol/L (3.5-5.1)
[2021-07-07 21:53] LABS: ALBUMIN 3.7 g/dL (3.5-5.0); BILIRUBIN,TOTAL 0.4 mg/dL (0.2-1.0); TOTAL PROTEIN, SERUM 7.4 g/dL (6.0-8.3)
[2021-07-07] MEDS ORDERED: AMOX1TAB16 PO (22:23)
[2021-07-07] MEDS ORDERED: ALBU8.5H8 IH (22:23)
[2021-07-07] MEDS ORDERED: NIRM1TAB PO (22:23)
[2021-07-07] MEDS ORDERED: IBUP-2071 PO (22:23)
[2021-07-07] MEDS ORDERED: ALBUTEROL INHALER 90MCG/INH IH ONE (22:30)
[2021-07-07] MEDS ORDERED: CEFTRIAXONE 1G VIAL IM ONE (22:30)
[2021-07-07] MEDS ORDERED: DEXAMETHASONE 4 MG TAB PO ONE (22:30)
== END 2021-07-07 22:47 | disposition home or self-care (01) ==
LOC: EDH 20:50
DX: U07.1 COVID-19 (principal); J12.82 Pneumonia due to coronavirus disease 2019; E86.0 Dehydration; F31.9 Bipolar disorder, unspecified; F41.9 Anxiety disorder, unspecified; E66.01 Morbid (severe) obesity due to excess calories; Z88.1 Allergy status to other antibiotic agents; Z88.8 Allergy status to other drugs, medicaments and biological substances; Z79.1 Long term (current) use of non-steroidal anti-inflammatories (NSAID); Z79.52 Long term (current) use of systemic steroids; Z79.84 Long term (current) use of oral hypoglycemic drugs; Z79.899 Other long term (current) drug therapy; Z98.84 Bariatric surgery status; Z68.37 Body mass index [BMI] 37.0-37.9, adult
CPT/HCPCS: 36415; 71045; 80053; 81001; 81025; 83605; 85025; 87040 ×2; 87635; 87804 ×2; 87880; 96372; 99284; C9803; J0696; J7030; J8540

== ENCOUNTER 2021-10-28 15:12 | Emergency (ER) | payer MEDICARE ==
[~2021-10-28] VITALS: Ht 170.2 cm; Wt 101.2 kg
[~2021-10-28 15:12] MED LIST changes: +ALBU8.5H8 IH; +AMOX1TAB16 PO; +IBUP-2071 PO
[2021-10-28 17:22] LABS: BASOPHILS % (AUTO) 0.4 % (0.0-5.0); EOSINOPHILS % (AUTO) 2.3 % (0.0-8.0); HEMATOCRIT 46.7 % (36-48); LYMPHOCYTES % (AUTO) 39.8 % (21.0-51.0); MEAN CORPUSCULAR HEMOGLOBIN 30.5 pg (27.0-33.0); MEAN CORPUSCULAR HGB CONC 33.2 g/dL (32.0-36.0); MEAN CORPUSCULAR VOLUME 91.7 fL (79-99); NEUTROPHILS % (AUTO) 51.1 % (40.0-77.0); PLATELET COUNT (AUTO) 367 K/uL (130-400); RED BLOOD CELL COUNT(AUTO) 5.09 MIL/uL (4.00-5.50); RED CELL DISTRIBUTION WIDTH 12.6 % (11.0-15.5); WHITE BLOOD COUNT (AUTO) 11.2 K/uL (4.8-10.8)
[2021-10-28 17:28] LABS: CREATININE 0.6 mg/dL (0.5-1.5)
[2021-10-28 17:32] LABS: ALBUMIN 4.2 g/dL (3.5-5.0); TOTAL PROTEIN, SERUM 8.3 g/dL (6.0-8.3)
[2021-10-28 18:21] LABS: APPEARANCE,URINE CLEAR (CLEAR); BILIRUBIN,URINE NEGATIVE (NEGATIVE); COLOR,URINE YELLOW (YELLOW); GLUCOSE, URINE (UA) NEGATIVE (NEGATIVE); KETONES,URINE NEGATIVE (NEGATIVE); LEUKOCYTE ESTERASE ,URINE NEGATIVE Leu/uL (NEGATIVE); NITRATE,URINE NEGATIVE (NEGATIVE); OCCULT BLOOD,URINE NEGATIVE (NEGATIVE); PROTEIN,URINE NEGATIVE (NEGATIVE); UROBILINOGEN,URINE 0.2 mg/dL (0.2-1.0)
[2021-10-28 18:22] LABS: HCG,QUALITATIVE URINE NEGATIVE (NEGATIVE)
[2021-10-28 18:26] LABS: RBC,URINE 0-1 /HPF (0-1); WBC,URINE 0-1 /HPF (0-1)
[2021-10-28 18:27] LABS: BACTERIA,URINE Rare /HPF (None Seen); SQUAMOUS EPITHELIAL CELL,UR Rare /HPF (0-2)
[2021-10-28 19:21] VITALS: BP 117/61
[2021-10-28] MEDS ORDERED: HYOS0.124 SL (19:35)
== END 2021-10-28 19:43 | disposition home or self-care (01) ==
LOC: EDH 15:12
DX: R10.9 Unspecified abdominal pain (principal); E66.01 Morbid (severe) obesity due to excess calories; Z68.34 Body mass index [BMI] 34.0-34.9, adult; E78.00 Pure hypercholesterolemia, unspecified; Z88.1 Allergy status to other antibiotic agents; Z88.8 Allergy status to other drugs, medicaments and biological substances; Z79.899 Other long term (current) drug therapy; Z90.49 Acquired absence of other specified parts of digestive tract; Z98.890 Other specified postprocedural states
CPT/HCPCS: 36415; 74176; 80053; 81001; 81025; 83690; 85025

== ENCOUNTER 2022-04-30 21:34 | Emergency (ER) | payer MEDICARE ==
[~2022-04-30] VITALS: Ht 170.2 cm; Wt 97.1 kg
[~2022-04-30 21:34] MED LIST changes: +HYOS0.124 SL
[2022-04-30 21:49] VITALS: BP 120/94
== END 2022-04-30 23:11 | disposition home or self-care (01) ==
LOC: EDH 21:34
DX: S63.8X1A Sprain of other part of right wrist and hand, initial encounter (principal); X58.XXXA Exposure to other specified factors, initial encounter; Y93.89 Activity, other specified; Y92.89 Other specified places as the place of occurrence of the external cause; Y99.8 Other external cause status
CPT/HCPCS: 73120

== ENCOUNTER 2022-06-08 19:14 | Emergency (ER) | payer MEDICARE ==
[2022-06-08] MEDS ORDERED: IBUP-2071 PO (20:24)
[2022-06-08] MEDS ORDERED: IBUPROFEN 800 MG TAB PO ONE (20:30)
[2022-06-08 20:52] VITALS: BP 132/74
== END 2022-06-08 20:54 | disposition home or self-care (01) ==
LOC: EDH 19:14
DX: S93.505A Unspecified sprain of left lesser toe(s), initial encounter (principal); E11.9 Type 2 diabetes mellitus without complications; E66.01 Morbid (severe) obesity due to excess calories; E78.00 Pure hypercholesterolemia, unspecified; I10 Essential (primary) hypertension; Z79.1 Long term (current) use of non-steroidal anti-inflammatories (NSAID); Z79.84 Long term (current) use of oral hypoglycemic drugs; Z79.899 Other long term (current) drug therapy; Z88.1 Allergy status to other antibiotic agents; Z88.8 Allergy status to other drugs, medicaments and biological substances; Z90.49 Acquired absence of other specified parts of digestive tract; Z98.890 Other specified postprocedural states; W18.09XA Striking against other object with subsequent fall, initial encounter; Y93.89 Activity, other specified; Y92.89 Other specified places as the place of occurrence of the external cause; Y99.8 Other external cause status
CPT/HCPCS: 73660

== ENCOUNTER 2022-08-24 21:20 | Emergency (ER) | payer MEDICARE ==
[2022-08-24 21:28] VITALS: BP 112/67; PULSE 64; RESP 16
[2022-08-24 22:00] LABS: BASOPHILS % (AUTO) 0.4 % (0.0-5.0); EOSINOPHILS % (AUTO) 1.1 % (0.0-8.0); HEMATOCRIT 39.6 % (36-48); LYMPHOCYTES % (AUTO) 38.2 % (21.0-51.0); MEAN CORPUSCULAR HEMOGLOBIN 30.4 pg (27.0-33.0); MEAN CORPUSCULAR HGB CONC 33.6 g/dL (32.0-36.0); MEAN CORPUSCULAR VOLUME 90.6 fL (79-99); MONOCYTES % (AUTO) 5.9 % (3.0-13.0); NEUTROPHILS % (AUTO) 54.2 % (40.0-77.0); PLATELET COUNT (AUTO) 297 K/uL (130-400); RED BLOOD CELL COUNT(AUTO) 4.37 MIL/uL (4.00-5.50); RED CELL DISTRIBUTION WIDTH 12.9 % (11.0-15.5); WHITE BLOOD COUNT (AUTO) 9.7 K/uL (4.8-10.8)
[2022-08-24 22:10] LABS: PROTHROMBIN TIME 11.6 SEC (9.6-11.6)
[2022-08-24 22:11] LABS: PARTIAL THROMBOPLASTIN TIME 26.7 SEC (26.3-35.5)
[2022-08-24 22:13] LABS: CREATININE 0.6 mg/dL (0.5-1.5); POTASSIUM 3.4 mmol/L (3.5-5.1)
[2022-08-24 22:25] LABS: ALBUMIN 3.3 g/dL (3.5-5.0); TOTAL PROTEIN, SERUM 6.8 g/dL (6.0-8.3)
[2022-08-24] MEDS ORDERED: OMEP40CA21 PO (23:36)
[2022-08-24 23:41] LABS: APPEARANCE,URINE CLEAR (CLEAR); BILIRUBIN,URINE NEGATIVE (NEGATIVE); COLOR,URINE COLORLESS (YELLOW); GLUCOSE, URINE (UA) NEGATIVE (NEGATIVE); KETONES,URINE NEGATIVE (NEGATIVE); LEUKOCYTE ESTERASE ,URINE NEGATIVE Leu/uL (NEGATIVE); NITRATE,URINE NEGATIVE (NEGATIVE); OCCULT BLOOD,URINE NEGATIVE (NEGATIVE); PH,URINE 7.5 (5.0-8.0); PROTEIN,URINE NEGATIVE (NEGATIVE); UROBILINOGEN,URINE 0.2 mg/dL (0.2-1.0)
[2022-08-24 23:44] LABS: AMPHET/METH SCREEN,URINE NEGATIVE (NEGATIVE); BARBITURATE SCREEN, URINE NEGATIVE (NEGATIVE); BENZODIAZEPINES SCREEN,URINE NEGATIVE (NEGATIVE); CANNABINOID SCREEN,URINE NEGATIVE (NEGATIVE); COCAINE SCREEN,URINE NEGATIVE (NEGATIVE); OPIATE SCREEN,URINE NEGATIVE (NEGATIVE); PHENCYCLIDINE SCREEN,URINE NEGATIVE (NEGATIVE)
== END 2022-08-25 00:22 | disposition home or self-care (01) ==
LOC: EDH 21:20
DX: R07.89 Other chest pain (principal); Z79.84 Long term (current) use of oral hypoglycemic drugs; Z79.899 Other long term (current) drug therapy; Z98.890 Other specified postprocedural states; Z91.040 Latex allergy status; Z88.8 Allergy status to other drugs, medicaments and biological substances
CPT/HCPCS: 36415; 71045; 80053; 80305; 81003; 82550; 83735; 83880; 84484; 84703; 85025; 85610; 85730; 93005

== ENCOUNTER → 2022-09-15 | Outpatient (CLI) | payer MEDICARE ==
[~2022-09-15] MED LIST changes: -ACET-2247 PO; -AMOX1TAB16 PO; -BISA10SU61 RC; -CEPH500B PO; -FLEETOIL PR; -HYOS0.124 SL; -IBUP-2071 PO; +IOHEXOL 350 MG/ML 100ML INFUS..BTL IV ONE; +OMEP40CA21 PO
== END | disposition home or self-care (01) ==
LOC: RAH 07:41
PROVIDERS: ATTEND Student in an Organized Health Care Education/Training Program
DX: R07.9 Chest pain, unspecified (principal)
CPT/HCPCS: 75574; Q9967

== ENCOUNTER → 2022-09-21 | Outpatient (CLI) | payer MEDICARE ==
[~2022-09-21] MED LIST changes: -IOHEXOL 350 MG/ML 100ML INFUS..BTL IV ONE
== END | disposition home or self-care (01) ==
LOC: SHCH 08:29
PROVIDERS: ATTEND Student in an Organized Health Care Education/Training Program
DX: R07.9 Chest pain, unspecified (principal); I10 Essential (primary) hypertension; E78.5 Hyperlipidemia, unspecified; E11.9 Type 2 diabetes mellitus without complications
CPT/HCPCS: 93306

== ENCOUNTER 2024-04-10 17:30 | Emergency (ER) | payer MEDICARE ==
[~2024-04-10] VITALS: Ht 170.2 cm; Wt 93.4 kg
--- NOTE | 2024-04-10 18:58 | HMCIMG ---
LEFT ANKLE RADIOGRAPHS - 3 VIEWS INDICATION: Pain after fall COMPARISON: None FINDINGS: AP, lateral, and oblique views. No fracture or dislocation identified. The talar dome is intact. Ankle mortise and tibial plafond are well maintained. No significant joint effusion is present. Subcentimeter plantar calcaneal spur. Subcentimeter traction enthesophyte arises off the posterior calcaneus at the Achilles tendon attachment. IMPRESSION: No evidence for fracture or dislocation.
--- NOTE | 2024-04-10 19:00 | HMCIMG ---
LEFT FOOT RADIOGRAPHS - 3 VIEWS INDICATION: Pain COMPARISON: None FINDINGS: AP, lateral, and oblique views. Overlying splint material limits detail evaluation of the underlying osseous structures. No fracture or subluxation identified. Midfoot alignment is well maintained. Subcentimeter plantar calcaneal spur. Subcentimeter traction enthesophyte arises off the posterior calcaneus at the Achilles tendon attachment. . IMPRESSION: No evidence for fracture or subluxation.
--- NOTE | 2024-04-10 19:34 | ERN ---
ED Note History of Present Illness Stated Complaint: FOOT INJURY Chief Complaint: FOOT INJURY/PAIN Time Seen by MD: 17:32 Time Seen by Midlevel: 17:36 Dictation: 43-year-old female with no past medical history coming in complaining of the left Quintana in sensation to the dorsal aspect of the foot. Patient states yesterday she had a ground level fall was already seen at one of the urgent cares where they did an x-ray, they told she had a hairline fracture and put her in a sugar-tong splint. However patient states she was having the burning sensation despite taking her tramadol. No new trauma. Allergies: Coded Allergies: erythromycin base (Unverified Allergy, Unknown, 01/23/19) iodine (Unverified Allergy, Unknown, 10/20/20) Uncoded Allergies: SHELLFISH (Allergy, Severe, ANAPHYLAXIS, 01/23/21) Home Meds Active Scripts Omeprazole (Omeprazole) 40 Mg Capsule.dr, 40 MG PO DAILY, #30 CAP Prov:LETICIA WEBB MD 08/24/22 Albuterol Sulfate (Proair Hfa) 8.5 Gm Hfa.aer.ad, 2 PUFF IH QIDP, #1 INHALER Prov:LISA VANCE 07/07/21 Reported Medications [Vitamin D] No Conflict Check, 1.25 MG PO QWEEK 10/17/20 Lorazepam (Ativan) 1 Mg Tablet, 1 MG PO AD PRN for ANXIETY/AGITATION, TAB 10/17/20 Quetiapine Fumarate (Quetiapine Fumarate) 50 Mg Tablet, 50 MG PO HS, TAB 08/25/20 Oxcarbazepine (Oxcarbazepine) 300 Mg Tablet, 300 MG PO BID, TAB 08/25/20 Metformin HCl (Metformin HCl) 500 Mg Tablet, 500 MG PO BID, TAB 08/25/20 Icosapent Ethyl (Vascepa) 1 Gm Capsule, 1 GM PO BID, CAP 08/25/20 Lisinopril (Lisinopril) 20 Mg Tablet, 20 MG PO DAILY, TAB 08/25/20 Past Medical History Past Medical History: High Cholesterol, Hypertension Additional Past Medical Hx: ANGER ISSUES, morbidly obese, GASTRIC BYPASS Surgical History: Tonsillectomy, Cholecystectomy Surgical History Other: GASTRIC BYPASS, LEFT KNEE SX, LHC Family History: Negative Social History: Negative, Other History: Not Applicable : 0 Review of System Dictation Constitutional: Negative for fever,chills, and weight loss Eyes: Negative for injury, pain,redness, and discharge ENT: Negative for injury,pain or swelling Cardiovascular: Negative for chest pain, palpitations, and edema Respiratory: Negative for shortness of breath, cough, and wheezing, Abdomen/GI: Negative for abdominal pain, nausea, vomiting, diarrhea, and constipation Back: Negative for injury and pain : Negative for injury, bleeding and discharge MS/Extremity: Negative for injury and deformity Skin: Negative for rash, and discoloration left foot pain Neuro: Negative for headache, weakness, numbness, tingling, and seizure Psych: Negative for suicide ideation, homicidal ideation, and hallucinations Review of Systems: was completed Initial Vital Sign VS Vital Signs Date Time Temp Pulse Resp B/P (MAP) Pulse Ox O2 Delivery O2 Flow Rate FiO2 04/10/24 17:53 98.1 78 16 122/89 99 Room Air 04/10/24 18:36 0 21 Physical Exam Dictation General: awake, alert, NAD Head/Face: Normocephalic, atraumatic Eyes: PERRL, EOMI, vision at baseline ENT: oral cavity clear, TMs clear, no signs of infection Neck: Trachea midline, supple, no nuchal rigidity Cardiovascular: RRR, normal S1/S2, No MRGs, no JVD Respiratory: CTAB, no respiratory distress, No rales or wheezes Abdomen: Soft, non-tender, non-distended, normal bowel sounds, no guarding or rebound. Skin: Warm, dry, normal turgor, no rash MS/Extremity: Pulses equal, no cyanosis, neurovascular intact, FROM, burning sensation to the dorsal aspect of the left foot, but he is warm to touch, sensa tion intact, Neuro: COAx4, GCS 15, strength 5/5, CN 2-12 intact, normal cerebellar exam, normal gait, Psych: Normal behavior, mood, and affect normal Results (Laboratory/Radiology) Labs Reviewed?: Yes X-RAY Comment: [place] [id number] [place] [id number] IMAGING REPORT Signed PATIENT: NEELIMA ALONZO MR#: [id number] : 1980 SEX: F AGE: 43 LOCATION: ED ORDER 16 STATUS: REG ER [facility] REPORT#: [id number] SERVICE 15 REASON: fall ORDERING PHYSICIAN: SANDI STANLEY NP PROCEDURE: FT 3VW LT - FOOT COMP 3+VWS LT LEFT FOOT RADIOGRAPHS - 3 VIEWS INDICATION: Pain COMPARISON: None FINDINGS: AP, lateral, and oblique views. Overlying splint material limits detail evaluation of the underlying osseous structures. No fracture or subluxation identified. Midfoot alignment is well maintained. Subcentimeter plantar calcaneal spur. Subcentimeter traction enthesophyte arises off the posterior calcaneus at the Achilles tendon attachment. . IMPRESSION: No evidence for fracture or subluxation. DICTATED BY: PARRISH GREENWOOD MD DATE: 04/10/241855 ELECTRONICALLY SIGNED BY: PARRISH GREENWOOD MD DATE: 04/10/24 [address] [place] [address] IMAGING REPORT Signed PATIENT: NEELIMA ALONZO MR#: [id number] : 1980 SEX: F AGE: 43 LOCATION: [facility] ORDER 16 STATUS: REG ER REPORT#: [id number] SERVICE 15 REASON: fall ORDERING PHYSICIAN: SANDI STANLEY NP PROCEDURE: [id number] - ANKLE 2VWS LT LEFT ANKLE RADIOGRAPHS - 3 VIEWS INDICATION: Pain after fall COMPARISON: None FINDINGS: AP, lateral, and oblique views. No fracture or dislocation identified. The talar dome is intact. Ankle mortise and tibial plafond are well maintained. No significant joint effusion is present. Subcentimeter plantar calcaneal spur. Subcentimeter traction enthesophyte arises off the posterior calcaneus at the Achilles tendon attachment. IMPRESSION: No evidence for fracture or dislocation. DICTATED BY: PARRISH GREENWOOD MD DATE: 04/10/241853 ELECTRONICALLY SIGNED BY: PARRISH GREENWOOD MD DATE: 03/04/25 1858 ED Course ED Course Orders Procedure Category Date Status Time Ankle 2vws Lt RAD 04/10/24 Resulted 18:16 Foot Comp 3+Vws Lt RAD 04/10/24 Resulted 18:16 *Nursing CPOE 04/10/24 Transmitted Communication: 19:26 Ketorolac PHA 04/10/24 Transmitted Tromethamine 15mg/Ml 19:26 Vital Signs Date Time Temp Pulse Resp B/P (MAP) Pulse Ox O2 Delivery O2 Flow Rate FiO2 04/10/24 18:36 98.2 75 16 120/85 98 Room Air* 0 21 04/10/24 17:53 98.1 78 16 122/89 99 Room Air Medical Decision Making MDM MDM:43-year-old female with no past medical history coming in complaining of the left Quintana in sensation to the dorsal aspect of the foot. Patient states yesterday she had a ground level fall was already seen at one of the urgent cares where they did an x-ray, they told she had a hairline fracture and put her in a sugar-tong splint. However patient states she was having the burning sensation despite taking her tramadol. No new trauma. X-rays of the foot and ankle are within normal range no acute fractures. Discussed with the patient more than likely the splint is very tight. We will readjust splint or at a boot splint. Educated patient to take her home medications as prescribed and to follow up with foreclosure specialist. Patient verbalized understanding, answered all questions. Differential diagnosis: Ankle fracture, sprain, foot pain Rationale: Tests considered and ordered secondary to shared decision making include: Previous outside records reviewed: Old ER visits. Risk of complication and/or morbidity or mortality of patient management: None Medications-Per medication reconciliation Need for hospitalization: Patient does not meet criteria for hospitalization. Need for emergency major/minor surgery: No There are no social concerns with this patient. Prescription drug management Prescriptions will include symptomatic care Patient's prior external medical records from other ER visits were reviewed by me as indicated. Prior testing and results from previous visits were reviewed. Prior tests were taken into account with medical decision making and resource utilization, independent historian/historians were used to obtain complete medical history. I independently interpreted the test that were performed, results were reviewed by me and considered findings on radiology if ordered. Medical management and examination interpretation discussions were had by me with other qualified healthcare professionals as indicated for the patient's care. DX & DISP Disposition: Discharge Departure Impression: Primary Impression: Foot sprain Condition: Stable Additional Instructions: Continue taking the tramadol as prescribed. Elevate your foot an ice it to help with the swelling. Follow up with PCP and or with the foreclosure specialist. Return to the ER if you notice discoloration to her foot, numbness or tingling sensation. Referrals: RICHARD VARMA MD (PCP) LAURA WONG MD Time of Disposition: 19:33 I have reviewed the case, and I agree with, Diagnosis and Plan SANDI STANLEY NP Apr 10, 2024 19:34
[2024-04-10] MEDS: ketOROlac 15MG/ML VIAL (15MG/ML) IM STA (19:42)
--- NOTE | 2024-04-10 19:42 | NUR ---
PATIENT REFUSED TORADOL SHOT, LEATHA HAGER MADE AWARE
[2024-04-10 19:43] VITALS: BP 122/88; PULSE 75; RESP 16; TEMP 98.2; O2SAT 98
== END 2024-04-10 19:46 | disposition home or self-care (01) ==
LOC: EDH 17:30
DX: S93.692A Other sprain of left foot, initial encounter (principal); E66.01 Morbid (severe) obesity due to excess calories; E78.00 Pure hypercholesterolemia, unspecified; I10 Essential (primary) hypertension; Z79.84 Long term (current) use of oral hypoglycemic drugs; Z79.899 Other long term (current) drug therapy; Z88.1 Allergy status to other antibiotic agents; Z88.8 Allergy status to other drugs, medicaments and biological substances; Z90.49 Acquired absence of other specified parts of digestive tract; Z90.89 Acquired absence of other organs; Z91.041 Radiographic dye allergy status; Z98.84 Bariatric surgery status; W18.39XA Other fall on same level, initial encounter; Y93.89 Activity, other specified; Y92.89 Other specified places as the place of occurrence of the external cause; Y99.8 Other external cause status
CPT/HCPCS: 29515; 73600; 73630; 99284

== ENCOUNTER → 2024-07-27 | Outpatient (CLI) | payer MEDICARE ==
--- NOTE | 2024-07-27 16:16 | HMCIMG ---
MR BRAIN WO CON HISTORY: Gait issues COMPARISON: None TECHNIQUE: MRI of the brain was performed utilizing multiple pulse sequences in axial, coronal and sagittal planes. Patient was not given contrast through intravenous route. FINDINGS: The ventricles and extraventricular CSF spaces are nondilated for patient's age. There is no midline shift, mass effect or herniation. No subacute hemorrhage is seen. No MR evidence of acute infarct is seen in the diffusion weighted images. Cerebellar tonsils are in normal position. No evidence of mucoperiosteal thickening is seen of the visualized paranasal sinuses. No MR evidence of a mass lesion is seen in this noncontrast study. IMPRESSION: 1. No MR evidence of acute infarct is seen in the diffusion weighted images.
== END | disposition home or self-care (01) ==
LOC: RAH 14:17
PROVIDERS: ATTEND Internal Medicine Nephrology
DX: R55 Syncope and collapse (principal)
CPT/HCPCS: 70551

== ENCOUNTER → 2024-08-24 | Outpatient (CLI) | payer MEDICARE ==
--- NOTE | 2024-08-25 17:04 | HMCIMG ---
EXAMINATION: NONCONTRAST MRI OF THE LEFT SHOULDER. CLINICAL HISTORY: Left shoulder pain. COMPARISON: None provided. TECHNIQUE: Multiplanar, multisequence MR images of the left shoulder are submitted. FINDINGS: There is type I acromion with no subacromial spur. The coracoclavicular ligament is intact. The acromioclavicular joint is normal. No periosseous synovial thickening. There is no subacromial-subdeltoid bursitis. The peritendinous soft tissues are normal. Mild supraspinatus insertional tendinosis with partial thickness 0.6 cm posterior supraspinatus and bursal sided footprint tear involving 25% of tendon thickness. The subscapularis, infraspinatus, and teres minor tendons are intact without evidence of tendinopathy or tear. The musculature of the rotator cuff demonstrates normal bulk and signal. The long head of the biceps tendon is normal in course and morphology. Bicipital anchor is intact. There is normal bone marrow signal within the shoulder girdle without fracture, avascular necrosis, or osteomyelitis. Superior labral tear extending anteriorly and posteriorly up to the equator. The glenohumeral joint is intact. The soft tissues are normal. IMPRESSION: 1. Superior labral tear extending anteriorly and posteriorly up to the equator. 2. Partial-thickness bursal-sided tear of the posterior supraspinatus tendon measuring 0.6 cm, involving 25% of tendon thickness, with mild insertional tendinosis. /[place]
== END | disposition home or self-care (01) ==
LOC: RAH 13:57
PROVIDERS: ATTEND Internal Medicine Nephrology
DX: S43.432A Superior glenoid labrum lesion of left shoulder, initial encounter (principal); M75.112 Incomplete rotator cuff tear or rupture of left shoulder, not specified as traumatic; M67.814 Other specified disorders of tendon, left shoulder; M25.512 Pain in left shoulder; X58.XXXA Exposure to other specified factors, initial encounter; Y93.89 Activity, other specified; Y92.89 Other specified places as the place of occurrence of the external cause; Y99.8 Other external cause status
CPT/HCPCS: 73221